=== PATIENT | female | born 1950 | race African-American/Black ===

== ENCOUNTER 2024-08-13 13:39 | Emergency (ER) | payer OTHER, MEDICAID ==
[~2024-08-13] VITALS: Ht 165.1 cm; Wt 78.0 kg
[2024-08-13 13:45] VITALS: O2SAT 96
[2024-08-13] MEDS ORDERED: MIDAZOLAM HCL 2 MG/2 ML VIAL IM ONE (14:00)
[2024-08-13] MEDS ORDERED: OLANZAPINE 10 MG/VIAL IM ONE (14:00)
[2024-08-13 14:15] LABS: BASOPHILS % 0.6 % (0.0-2.0); EOSINOPHILS % 0.6 % (0.0-5.0); HEMATOCRIT. 38.2 % (36.0-48.0); HEMOGLOBIN. 12.2 g/dL (12.0-16.0); LYMPHOCYTES % 15.8 % (20.0-50.0); MEAN CORPUSCULAR HEMOGLOBIN 27.7 pg (28.0-32.0); MEAN CORPUSCULAR VOLUME 86.6 fL (81.0-99.0); MEAN PLATELET VOLUME 10.3 fl (7.4-10.4); MONOCYTES % 7.5 % (2.0-8.0); NEUTROPHILS % 75.5 % (40.0-76.0); PLATELET 119 x1000/uL (130-400); RED BLOOD CELL COUNT 4.42 mill/uL (4.2-5.4); RED CELL DISTRIBUTION WIDTH 15.4 % (11.6-14.6); WHITE BLOOD COUNT 8.4 x1000/uL (4.5-11.0)
[2024-08-13 14:24] LABS: PROTHROMBIN TIME 11.1 sec (9.6-11.0)
[2024-08-13 14:26] LABS: CHLORIDE 113 mEq/L (98-107); POTASSIUM 4.4 mEq/L (3.5-5.1); SODIUM 149 mEq/L (136-145)
[2024-08-13 14:27] LABS: CALCIUM 8.6 mg/dL (8.7-10.4); CARBON DIOXIDE 28 mEq/L (21-32)
[2024-08-13 14:32] LABS: CREATININE 1.5 mg/dL (0.6-1.0); GLUCOSE 128 mg/dL (70-105); UREA NITROGEN BLOOD 27 mg/dL (9-23)
[2024-08-13 14:34] LABS: TROPONIN I HIGH SENSITIVITY 7 ng/L (3.0-34)
[2024-08-13 17:30] VITALS: BP 140/70; PULSE 56; RESP 16; TEMP 37; O2SAT 97
== END 2024-08-13 18:07 | disposition short-term general hospital (02) ==
LOC: EDBEDREQ 13:50 → ER 14:04
DX: S09.8XXA Other specified injuries of head, initial encounter (principal); R55 Syncope and collapse; I10 Essential (primary) hypertension; Z86.73 Personal history of transient ischemic attack (TIA), and cerebral infarction without residual deficits; X58.XXXA Exposure to other specified factors, initial encounter; Y93.89 Activity, other specified; Y92.89 Other specified places as the place of occurrence of the external cause; Y99.8 Other external cause status
CPT/HCPCS: 99285; 70450; 80048; 83880; 85025; 85610; 84484; 36415; 93005; J3490; 71045; J2250